=== PATIENT | female | born 1950 | race Caucasian/White ===

== ENCOUNTER 2019-09-13 07:22 | Day surgery (SDC) | payer MEDICARE, OTHER ==
[2019-09-13] MEDS ORDERED: CEFAZOLIN 1 G VIAL IM ONE (07:23)
[2019-09-13] MEDS ORDERED: NEOSTIGMINE METHYLSULFATE 10 MG/10 ML VIAL IM ONE (07:23)
[2019-09-13] MEDS ORDERED: ONDANSETRON 4 MG/2 ML VIAL IV ONE (07:23)
[2019-09-13] MEDS ORDERED: PROPOFOL 200 MG/20 ML BOTTLE IV ONE (07:23)
[2019-09-13] MEDS ORDERED: SEVOFLURANE 250 ML BOTTLE IH ONE (07:23)
[2019-09-13] MEDS ORDERED: METOCLOPRAMIDE HCL 10 MG/2 ML VIAL IV ONE (07:23)
[2019-09-13] MEDS ORDERED: GLYCOPYRROLATE 0.2 MG/ML VIAL IJ ONE (07:23)
[2019-09-13] MEDS ORDERED: BUPIVACAINE PF 0.5% 30 ML VIAL ONE (09:14)
[2019-09-13] MEDS ORDERED: LIDOCAINE HCL 1% 20 ML VIAL ONE (09:14)
[2019-09-13] MEDS ORDERED: BUPIVACAINE/EPI PF 0.5% 10 ML VIAL ONE (09:15)
[2019-09-13] MEDS ORDERED: FENTANYL CITRATE 250 MCG/5 ML AMPUL ONE (09:16)
[2019-09-13] MEDS ORDERED: MIDAZOLAM HCL 2 MG/2 ML VIAL ONE (09:16)
[2019-09-13] MEDS ORDERED: ROCURONIUM BROMIDE 50 MG/5 ML VIAL ONE (09:17)
[2019-09-13] MEDS ORDERED: MEPERIDINE 25 MG/1 ML DISP.SYRIN ONE (09:18)
[2019-09-13] MEDS ORDERED: LIDOCAINE 1%-EPI 1:100,000 20 ML VIAL ONE (09:19)
[2019-09-13] MEDS ORDERED: SEVOFLURANE 250 ML BOTTLE ONE (10:25)
[2019-09-13] MEDS ORDERED: BACITRACIN ZINC OINT 15 GM TUBE ONE (11:18)
[2019-09-13] MEDS ORDERED: GABAPENTIN 300 MG CAPSULE PO ONE (12:00)
[2019-09-13] MEDS ORDERED: IBUPROFEN 800 MG TABLET PO ONE (12:00)
[2019-09-13] MEDS ORDERED: ACETAMINOPHEN 325 MG TABLET ONE (12:15)
== END 2019-09-13 14:15 | disposition home or self-care (01) ==
LOC: DS 07:22
PROVIDERS: ATTEND Surgery
DX: K43.2 Incisional hernia without obstruction or gangrene (principal); I10 Essential (primary) hypertension; M19.90 Unspecified osteoarthritis, unspecified site; E78.00 Pure hypercholesterolemia, unspecified; K21.9 Gastro-esophageal reflux disease without esophagitis; I25.10 Atherosclerotic heart disease of native coronary artery without angina pectoris; E66.09 Other obesity due to excess calories; Z90.710 Acquired absence of both cervix and uterus; Z98.890 Other specified postprocedural states; Z87.440 Personal history of urinary (tract) infections; Z79.899 Other long term (current) drug therapy
CPT/HCPCS: 49560; 49568; 93005; C1781; J0690; J2175; J2250; J2405; J2710; J2765; J3010; J3490 ×4; J7120; A4649; A4663